=== PATIENT | female | born 1985 | race African-American/Black ===

== ENCOUNTER 2018-09-06 07:45 | Emergency (ER) | payer SELFPAY ==
[2018-09-06 08:23] LABS: ABSOLUTE LYMPHOCYTES (AUTO) 1.7 10^3/uL (0.5-4.7); ABSOLUTE MONOCYTES (AUTO) 0.9 10^3/uL (0.1-1.4); ABSOLUTE NEUT (AUTO) 10.3 10^3/uL (1.7-8.2); BASOPHILS % (AUTO) 0.4 % (0-2); EOSINOPHILS % (AUTO) 0.2 % (0-6); HEMATOCRIT 38.6 % (36.0-47.0); HEMOGLOBIN 12.8 g/dL (12.0-15.5); LYMPHOCYTES % (AUTO) 12.9 % (13-45); MEAN CORPUSCULAR HEMOGLOBIN 30.9 pg (27.0-33.4); MEAN CORPUSCULAR HGB CONC 33.1 g/dL (32.0-36.0); MEAN CORPUSCULAR VOLUME 93 fl (80-97); MONOCYTES % (AUTO) 7.1 % (3-13); PLATELET COUNT 260 10^3/uL (150-450); RED BLOOD COUNT 4.15 10^6/uL (3.72-5.28); RED CELL DISTRIBUTION WIDTH 14.6 % (11.5-14.0); SEGMENTED NEUTROPHILS % (AUTO) 79.4 % (42-78); TOTAL CELLS COUNTED % (AUTO) 100 %; WHITE BLOOD COUNT 12.9 10^3/uL (4.0-10.5)
[2018-09-06] MEDS ORDERED: ONDANSETRON HCL INJ/PF 4 MG/2 ML SDV IV ONE (08:42)
[2018-09-06] MEDS ORDERED: MORPHINE SULFATE 10 MG/ML INJ IV ONE (08:42)
[2018-09-06] MEDS ORDERED: NORMAL SALINE 1000 ML 1,000 ML IV ONE (08:42)
--- NOTE | 2018-09-06 08:42 | ER Document Report ---
ED General - General Chief Complaint: Abdominal Pain Stated Complaint: ABDOMINAL PAIN Time Seen by Provider: 09/06/18 08:33 TRAVEL OUTSIDE OF THE [place] IN LAST 30 DAYS: No - HPI Notes: Patient is a 33-year-old female that presents to the emergency department for chief complaint of abdominal pain. Patient reports a sharp right sided abdominal pain that is been constant for the last 2 days. She denies any aggravating or relieving factors. She states the pain radiates from her right lower quadrant to her right upper quadrant. She is status post cholecystectomy. She does still have her appendix. She states today she started vomiting and feeling increased nausea and pain. Her last oral intake was yesterday evening. She denies fevers, diarrhea, bloody stools, hematemesis, chest pain or shortness of breath Past Medical History: Negative Past Surgical History: Cholecystectomy, x2 Social History: Denies drugs alcohol and tobacco Family History: Reviewed and noncontributory for presenting illness Allergies: Reviewed, see documented allergy list. REVIEW OF SYSTEMS: CONSTITUTIONAL : No fever No chills No diaphoresis No recent illness EENT: No vision changes No congestion No sore throat CARDIOVASCULAR: No chest pain No palpitations RESPIRATORY: No shortness of breath No cough No difficulty breathing GASTROINTESTINAL: abdominal pain nausea vomiting No diarrhea GENITOURINARY: No dysuria No hematuria No difficulty urinating MUSCULOSKELETAL: No back pain No leg pain No arm pain SKIN: No rashes No lesions LYMPHATIC: No swollen, enlarged glands. NEUROLOGICAL: No lightheadedness No headache No weakness No paresthesias PSYCHIATRIC: No anxiety No depression PHYSICAL EXAMINATION: Vital signs reviewed, nursing noted reviewed. GENERAL: Well-appearing, well-nourished and in no acute distress. HEAD: Atraumatic, normocephalic. EYES: Eyes appear normal, extraocular movements intact, sclera anicteric, conjunctiva are normal. ENT: nares patent, oropharynx clear without exudates. Moist mucous membranes. NECK: Normal range of motion, supple without lymphadenopathy LUNGS: Breath sounds clear to auscultation bilaterally and equal. No wheezes rales or rhonchi. HEART: Regular rate and rhythm without murmurs ABDOMEN: Soft, right lower quadrant tenderness, normoactive bowel sounds. Positive rebound tenderness, no guarding, no rigidity, no masses appreciated. EXTREMITIES: Nontender, good range of motion, no pitting or edema. NEUROLOGICAL: No focal neurological deficits. Moves all extremities spontaneously Motor and sensory grossly intact on exam. PSYCH: Normal mood, normal affect. SKIN: Warm, Dry, normal turgor, no rashes or lesions noted on exposed skin - Related Data Allergies/Adverse Reactions: No Known Allergies Allergy (Verified 09/06/18 07:47) Past Medical History - Social History Smoking Status: Current Every Day Smoker Chew tobacco use (# tins/day): No Frequency of alcohol use: Occasional Drug Abuse: None Family History: Reviewed & Not Pertinent Patient has suicidal ideation: No Patient has homicidal ideation: No Pulmonary Medical History: Denies: Hx Tuberculosis Renal/ Medical History: Denies: Hx Ectopic , Hx Peritoneal Dialysis GI Medical History: Reports: Hx Gastroesophageal Reflux Disease, Hx Irritable Bowel Psychiatric Medical History: Reports: Hx Anxiety, Hx Bipolar Disorder - anxiety, Hx Depression Past Surgical History: Reports: Hx Section - X1, Hx Cholecystectomy - Immunizations Immunizations up to date: Yes Hx Diphtheria, Pertussis, Tetanus Vaccination: Yes - UTD Physical Exam - Vital signs Vitals: Temp Pulse Resp BP Pulse Ox 98.9 F 92 18 128/63 H 100 09/06/18 07:48 09/06/18 07:48 09/06/18 07:48 09/06/18 07:48 09/06/18 07:48 Course - Re-evaluation Re-evalutation: 09/06/18 08:42 Vitals reviewed. Nursing notes reviewed. Patient given IV fluids, Zofran and morphine for symptomatic management. She does have rebound tenderness and tenderness over McBurney's point. CT will be obtained to evaluate for acute appendicitis. 09/06/18 10:26 Patient reevaluated and did have improvement of her symptoms but her pain has persisted. She will be given a dose of Toradol for continued pain control. Her CT scan shows a normal-appearing appendix. She does have changes around her cecum which are suggestive of a cecal diverticulitis. Her lab work shows a mild leukocytosis but is otherwise unremarkable. Laboratory 09/06/18 09/06/18 09/06/18 08:05 08:05 08:15 WBC 12.9 H RBC 4.15 Hgb 12.8 Hct 38.6 MCV 93 MCH 30.9 MCHC 33.1 RDW 14.6 H Plt Count 260 Seg Neutrophils % 79.4 H Lymphocytes % 12.9 L Monocytes % 7.1 Eosinophils % 0.2 Basophils % 0.4 Absolute Neutrophils 10.3 H Absolute Lymphocytes 1.7 Absolute Monocytes 0.9 Absolute Eosinophils 0.0 Absolute Basophils 0.0 Sodium 138.0 Potassium 4.2 Chloride 104 Carbon Dioxide 25 Anion Gap 9 BUN 15 Creatinine 0.59 Est GFR ( Amer) > 60 Est GFR (Non-Af Amer) > 60 Glucose 109 Calcium 10.3 H Total Bilirubin 0.8 Direct Bilirubin 0.2 Neonat Total Bilirubin Not Reportable Neonat Direct Bilirubin Not Reportable Neonat Indirect Bili Not Reportable AST 43 H ALT 31 Alkaline Phosphatase 62 Total Protein 7.9 Albumin 4.8 Lipase 109.9 Urine Color YELLOW Urine Appearance CLEAR Urine pH 8.0 Ur Specific [place] 1.023 Urine Protein NEGATIVE Urine Glucose (UA) NEGATIVE Urine Ketones NEGATIVE Urine Blood NEGATIVE Urine Nitrite NEGATIVE Urine Bilirubin NEGATIVE Urine Urobilinogen 2.0 H Ur Leukocyte Esterase NEGATIVE Urine WBC (Auto) 1 Urine RBC (Auto) 0 Urine Bacteria (Auto) TRACE Squamous Epi Cells Auto 2 Urine Mucus (Auto) MOD Urine Ascorbic Acid NEGATIVE Urine HCG, Qual NEGATIVE Abdomen/Pelvis CT 09/06/18 08:40 IMPRESSION: 1. There is mild fat stranding about the cecal base centered around a high attenuation focus which may be a diverticulum. Cecal diverticulitis is an uncommon although reported condition. 2. The adjacent appendix is distinctly visualized and normal. 3. Diastasis rectus and a broad-based, bowel containing midline ventral hernia. Patient will be started on Cipro and Flagyl. She was counseled on increasing oral hydration. She was counseled on return precautions and verbalized understanding. She will be referred to primary care for close follow-up. She is in agreement with this plan and stable at discharge. - Vital Signs Vital signs: Temp Pulse Resp BP Pulse Ox 98.9 F 92 18 128/63 H 100 09/06/18 07:48 09/06/18 07:48 09/06/18 07:48 09/06/18 07:48 09/06/18 07:48 - Laboratory Result Diagrams: 09/06/18 08:15 09/06/18 08:05 Laboratory results interpreted by me: 09/06/18 09/06/18 09/06/18 08:05 08:05 08:15 WBC 12.9 H RDW 14.6 H Seg Neutrophils % 79.4 H Lymphocytes % 12.9 L Absolute Neutrophils 10.3 H Calcium 10.3 H AST 43 H Urine Urobilinogen 2.0 H Discharge - Discharge Clinical Impression: Cecal diverticulitis Condition: Stable Disposition: HOME, SELF-CARE Instructions: Diverticulitis ([facility]), Ciprofloxacin ([facility]), Metronidazole ([facility]) Additional Instructions: Please return to the emergency department if you have any worsening, or concern of your symptoms. Please return to the emergency department if you develop chest pain, difficulty breathing, severe abdominal pain, or ongoing vomiting. Please follow-up with your primary care physician in 2-3 days and any other recommended physicians. If prescribed, take all medications as directed. If you have any questions or concerns do not hesitate to return the emergency department for evaluation. Prescriptions: Ciprofloxacin HCl [Cipro 500 mg Tablet] 500 mg PO BID #20 tablet Metronidazole [Flagyl] 500 mg PO BID #20 tablet Ondansetron [Zofran Odt 4 mg Tablet] 1 tab PO Q4H PRN #15 tab.rapdis PRN Reason: For Nausea/Vomiting Referrals: [facility] [Provider Group] - Follow up in 3-5 days
[2018-09-06 08:46] LABS: APPEARANCE,URINE CLEAR; BILIRUBIN,URINE NEGATIVE (NEGATIVE); COLOR,URINE YELLOW; GLUCOSE, URINE NEGATIVE (NEGATIVE); KETONES,URINE NEGATIVE (NEGATIVE); LEUKOCYTE ESTERASE,URINE NEGATIVE (NEGATIVE); NITRITE,URINE NEGATIVE (NEGATIVE); PROTEIN,URINE NEGATIVE (NEGATIVE); URINE SPECIFIC GRAVITY 1.023
[2018-09-06 08:47] LABS: ALANINE AMINOTRANSFERASE 31 U/L (9-52); ALBUMIN 4.8 g/dL (3.5-5.0); ALKALINE PHOSPHATASE 62 U/L (38-126); ANION GAP 9 (5-19); ASPARTATE AMINO TRANSFERASE 43 U/L (14-36); BILIRUBIN,DIRECT 0.2 mg/dL (0.0-0.4); BILIRUBIN,TOTAL 0.8 mg/dL (0.2-1.3); BLOOD UREA NITROGEN 15 mg/dL (7-20); CALCIUM 10.3 mg/dL (8.4-10.2); CARBON DIOXIDE 25 mmol/L (22-30); CHLORIDE 104 mmol/L (98-107); GLUCOSE 109 mg/dL (75-110); LIPASE 109.9 U/L (23-300); POTASSIUM 4.2 mmol/L (3.6-5.0); TOTAL PROTEIN 7.9 g/dL (6.3-8.2)
--- NOTE | 2018-09-06 10:13 | RADIOLOGY REPORT (SQ) ---
EXAM DESCRIPTION: CT ABD/PELVIS WITH IV ONLY COMPLETED DATE/TIME: 09/06/2018 9:55 am REASON FOR STUDY: RLQ pain COMPARISON: 06/30/2015 TECHNIQUE: CT scan of the abdomen and pelvis performed using helical scanning technique with dynamic intravenous contrast injection. No oral contrast. Images reviewed with lung, soft tissue, and bone windows. Reconstructed coronal and sagittal MPR images reviewed. Delayed images for evaluation of the urinary system also acquired. All images stored on PACS. All CT scanners at this facility use dose modulation, iterative reconstruction, and/or weight based d osing when appropriate to reduce radiation dose to as low as reasonably achievable (ALARA). [facility]: Dose Right [facility]: CareDose [facility]: Dose Right [facility]: Teradose 4D [facility]: [employer] CONTRAST TYPE AND DOSE: contrast/concentration: Isovue 350.00 mg/ml; Total Contrast Delivered: 100.0 ml; Total Saline Delivered: 72.0 ml RENAL FUNCTION: None required. The patient is less than 50 years old. RADIATION DOSE: CT Rad equipment meets quality standard of care and radiation dose reduction techniq ues were employed. CTDIvol: 12.8 - 17.0 mGy. DLP: 1607 mGy-cm.. LIMITATIONS: None. FINDINGS: LOWER CHEST: No significant findings. No nodules or infiltrates. LIVER: Normal size. No masses. No dilated ducts. SPLEEN: Normal size. No focal lesions. PANCREAS: No masses. No significant calcifications. No adjacent inflammation or peripancreatic fluid collections. Pancreatic duct not dilated. GALLBLADDER: Surgically absent. ADRENAL GLANDS: No significant masses or asymmetry. RIGHT KIDNEY AND URETER: No solid masses. No significant calcifications. No hydronephrosis or hyd roureter. LEFT KIDNEY AND URETER: No solid masses. No significant calcifications. No hydronephrosis or hydr oureter. AORTA AND VESSELS: No aneurysm. No dissection. Renal arteries, SMA, celiac without stenosis. RETROPERITONEUM: No retroperitoneal adenopathy, hemorrhage or masses. BOWEL AND PERITONEAL CAVITY: There is mild fat stranding about the cecal base centered around a high attenuation focus which may be a diverticulum (series 3, image 57). APPENDIX: The appendix is distinctly visualized anterior to the cecal base and is normal (series 3, i mage 49). PELVIS: No mass. No free fluid. Normal bladder. ABDOMINAL WALL: No masses. Diastasis rectus and a broad-based, bowel containing midline ventral lashonda ia. BONES: No significant or acute findings. OTHER: No other significant finding. IMPRESSION: 1. There is mild fat stranding about the cecal base centered around a high attenuation f ocus which may be a diverticulum. Cecal diverticulitis is an uncommon although reported condition. 2. The adjacent appendix is distinctly visualized and normal. 3. Diastasis rectus and a broad-based, bowel containing midline ventral hernia. TECHNICAL DOCUMENTATION: JOB ID: [id number] Quality ID # [id number]: Final reports with documentation of one or more dose reduction techniques (e.g., Au tomated exposure control, adjustment of the mA and/or kV according to patient size, use of iterative reconstruction technique) 2010 [employer]- All Rights Reserved Reading location - IP/workstation name: [email or web address]
[2018-09-06] MEDS ORDERED: KETOROLAC TROMETHAMINE INJ/PF 30 MG/1 ML SDV IV ONE (10:27)
[2018-09-06 10:50] VITALS: BP 116/76
== END 2018-09-06 10:50 | disposition home or self-care (01) ==
LOC: ER 07:45
DX: K57.92 Diverticulitis of intestine, part unspecified, without perforation or abscess without bleeding (principal); R10.9 Unspecified abdominal pain; F17.200 Nicotine dependence, unspecified, uncomplicated; Z90.49 Acquired absence of other specified parts of digestive tract
CPT/HCPCS: 99284; 96361; 96374; 96375; 36415; 83690; 85025; 81025; 80053; 81001; 74177; J1885; J2270; J2405; J7030

== ENCOUNTER 2019-02-12 18:56 | Emergency (ER) | payer SELFPAY ==
--- NOTE | 2019-02-12 19:27 | ER Document Report ---
ED Medical Screen (RME) - General Chief Complaint: Abdominal Pain Stated Complaint: STOMACH PAIN Time Seen by Provider: 02/12/19 19:25 TRAVEL OUTSIDE OF THE [place] IN LAST 30 DAYS: No - HPI Notes: 02/12/19 19:25 Patient is a 33-year-old female G7, P5 approximately 10 weeks who presents complaining of nausea and vomiting over the past couple weeks and having some discomfort near her mid abdomen/umbilical area. Patient is aware that she does have a hernia there, but has not noticed any swelling. Patient states that she has not had any ultrasound or further testing for her . She is able to eat and drink, but does have a decreased p.o. intake. She is urinating normally and having normal bowel movements. No vaginal discharge, odor, or bleeding. Denies PETERSEN, fever, neck pain, URI, CP, SOB, dysuria, back pain, or rash. I have treated and performed a rapid initial assessment of this patient. A comprehensive ED assessment and evaluation of the patient, analysis of test results and completion of medical decision making process will be conducted by additional ED providers. PHYSICAL EXAMINATION: GENERAL: Well-appearing, well-nourished and in no acute distress. A&Ox4. Answe rs questions appropriately. LUNGS: Breath sounds clear to auscultation bilaterally and equal. No wheezes rales or rhonchi. HEART: Regular rate and rhythm without murmurs, rubs, gallops. ABDOMEN: Soft, nondistended abdomen. No guarding, no rebound. Normal bowel sounds present. No CVA tenderness bilaterally. + mild lower mid abd tenderness (cannot elicit thorough abd exam w/o bed, however). + reducible umbilical hernia noted. - Related Data Allergies/Adverse Reactions: No Known Allergies Allergy (Verified 09/06/18 07:47) Past Medical History Pulmonary Medical History: Denies: Hx Tuberculosis Renal/ Medical History: Denies: Hx Ectopic , Hx Peritoneal Dialysis GI Medical History: Reports: Hx Gastroesophageal Reflux Disease, Hx Irritable Bowel Psychiatric Medical History: Reports: Hx Anxiety, Hx Bipolar Disorder - anxiety, Hx Depression Past Surgical History: Reports: Hx Section - X1, Hx Cholecystectomy - Immunizations Immunizations up to date: Yes Hx Diphtheria, Pertussis, Tetanus Vaccination: Yes - UTD Physical Exam - Vital signs Vitals: Temp Pulse Resp BP Pulse Ox 98.2 F 68 18 138/77 H 100 02/12/19 19:00 02/12/19 19:00 02/12/19 19:00 02/12/19 19:00 02/12/19 19:00 Course - Vital Signs Vital signs: Temp Pulse Resp BP Pulse Ox 98.2 F 68 18 138/77 H 100 02/12/19 19:00 02/12/19 19:00 02/12/19 19:00 02/12/19 19:00 02/12/19 19:00
[2019-02-12] MEDS ORDERED: NORMAL SALINE 1000 ML 1,000 ML IV ONE (19:28)
[2019-02-12] MEDS ORDERED: ONDANSETRON HCL INJ/PF 4 MG/2 ML SDV IV ONE (19:28)
[2019-02-12 20:08] LABS: APPEARANCE,URINE SLIGHTLY-CLOUDY; BILIRUBIN,URINE NEGATIVE (NEGATIVE); COLOR,URINE YELLOW; GLUCOSE, URINE NEGATIVE (NEGATIVE); KETONES,URINE NEGATIVE (NEGATIVE); LEUKOCYTE ESTERASE,URINE NEGATIVE (NEGATIVE); NITRITE,URINE NEGATIVE (NEGATIVE); PROTEIN,URINE NEGATIVE (NEGATIVE); URINE SPECIFIC GRAVITY 1.024; UROBILINOGEN,URINE NEGATIVE mg/dL (<2.0)
[2019-02-12 20:09] LABS: ABSOLUTE EOSINOPHILS # (AUTO) 0.1 10^3/uL (0.0-0.6); ABSOLUTE LYMPHOCYTES (AUTO) 2.2 10^3/uL (0.5-4.7); ABSOLUTE MONOCYTES (AUTO) 0.6 10^3/uL (0.1-1.4); ABSOLUTE NEUT (AUTO) 3.9 10^3/uL (1.7-8.2); BASOPHILS % (AUTO) 0.3 % (0-2); EOSINOPHILS % (AUTO) 0.9 % (0-6); HEMATOCRIT 35.7 % (36.0-47.0); HEMOGLOBIN 11.9 g/dL (12.0-15.5); LYMPHOCYTES % (AUTO) 32.2 % (13-45); MEAN CORPUSCULAR HEMOGLOBIN 31.2 pg (27.0-33.4); MEAN CORPUSCULAR HGB CONC 33.3 g/dL (32.0-36.0); MEAN CORPUSCULAR VOLUME 94 fl (80-97); MONOCYTES % (AUTO) 8.9 % (3-13); PLATELET COUNT 230 10^3/uL (150-450); RED BLOOD COUNT 3.81 10^6/uL (3.72-5.28); RED CELL DISTRIBUTION WIDTH 15.8 % (11.5-14.0); SEGMENTED NEUTROPHILS % (AUTO) 57.7 % (42-78); TOTAL CELLS COUNTED % (AUTO) 100 %; WHITE BLOOD COUNT 6.8 10^3/uL (4.0-10.5)
[2019-02-12 20:21] LABS: ALANINE AMINOTRANSFERASE 38 U/L (9-52); ALBUMIN 4.2 g/dL (3.5-5.0); ALKALINE PHOSPHATASE 49 U/L (38-126); ANION GAP 8 (5-19); ASPARTATE AMINO TRANSFERASE 18 U/L (14-36); BILIRUBIN,DIRECT 0.2 mg/dL (0.0-0.4); BILIRUBIN,TOTAL 0.3 mg/dL (0.2-1.3); BLOOD UREA NITROGEN 11 mg/dL (7-20); CALCIUM 10.2 mg/dL (8.4-10.2); CARBON DIOXIDE 26 mmol/L (22-30); CHLORIDE 104 mmol/L (98-107); GLUCOSE 99 mg/dL (75-110); LIPASE 402.3 U/L (23-300); POTASSIUM 3.8 mmol/L (3.6-5.0); SODIUM 137.9 mmol/L (137-145)
--- NOTE | 2019-02-12 20:26 | RADIOLOGY REPORT (SQ) ---
EXAM DESCRIPTION: US LESS THAN 14 WEEKS COMPLETED DATE/TME: 02/12/2019 19:27 CLINICAL HISTORY: 33 years, Female, approx 10wks, lower abd pain COMPARISON: None. TECHNIQUE: Multiple axial 2-D grayscale images of the pelvis were obtained transabdominally. Doppler was utilized. LIMITATIONS: None. FINDINGS: Uterus measures 4.1 x 7.8 x 6.0 cm in length. Cervix is closed, measuring 3.0 cm in length. A single intrauterine gestation is identified. Measurements are as follows: Clymer-rump length: 4.79 cm. heart rate is 157 bpm Estimated gestational age is 11 weeks and 4 days. Right ovary measures 3.0 x 1.6 x 2.0 cm in size. It demonstrates normal low resistance arterial waveforms as well as venous flow. Left ovary measures 5.1 x 1.9 x 2.4 cm in size. It demonstrates normal low resistance arterial waveforms/venous flow. Additionally, it appears to contain a hypoechoic lesion measuring 2.2 x 2.3 x 1.8 cm in size with peripheral hyperemia, suspicious for an involuting corpus luteal cyst. No significant free fluid is identified within the pelvis. IMPRESSION: Single viable intrauterine with measurements as above described. Suspect involuting corpus luteal cyst about the left ovary. copyright 2010 [employer]- All Rights Reserved
[2019-02-12] MEDS ORDERED: METOCLOPRAMIDE HCL 10 MG TABLET PO ONE (22:44)
--- NOTE | 2019-02-12 22:48 | ER Document Report ---
ED General - General Chief Complaint: Abdominal Pain Stated Complaint: STOMACH PAIN Time Seen by Provider: 02/12/19 19:25 Primary Care Provider: EUNICE REINA MD [ACTIVE STAFF] - Follow up in 3-5 days Notes: Patient is a 30-year-old female who is currently presents with some lower abdominal pain as well as nausea and vomiting. No fevers. No vaginal bleeding. States her seventh . She has 5 kids at home and has had one miscarriage. She says she has not yet had any care. She says she does feel that she is approximately 2 weeks ago. She says this she has had some vomiting and some abdominal discomfort. She is had these with other pregnancies as well. She has not had any medications to take at home in regards to her nausea and vomiting. TRAVEL OUTSIDE OF THE [place] IN LAST 30 DAYS: No - Related Data Allergies/Adverse Reactions: No Known Allergies Allergy (Verified 09/06/18 07:47) Past Medical History - Social History Smoking Status: Never Smoker Chew tobacco use (# tins/day): No Frequency of alcohol use: Occasional Drug Abuse: None Family History: Reviewed & Not Pertinent Patient has suicidal ideation: No Patient has homicidal ideation: No Pulmonary Medical History: Denies: Hx Tuberculosis Renal/ Medical History: Denies: Hx Ectopic , Hx Peritoneal Dialysis GI Medical History: Reports: Hx Gastroesophageal Reflux Disease, Hx Irritable Bowel Psychiatric Medical History: Reports: Hx Anxiety, Hx Bipolar Disorder - anxiety, Hx Depression Past Surgical History: Reports: Hx Section - X1, Hx Cholecystectomy - Immunizations Immunizations up to date: Yes Hx Diphtheria, Pertussis, Tetanus Vaccination: Yes - UTD Review of Systems - Review of Systems Notes: My Normal Review Basic REVIEW OF SYSTEMS: CONSTITUTIONAL : Denies fever, chills, or sweats. Denies recent illness. RESPIRATORY: Denies cough, cold, or chest congestion. Denies shortness of breath, difficulty breathing, or wheezing. GASTROINTESTINAL: Lower abdominal pain. Vomiting. GENITOURINARY: Denies difficulty urinating, painful urination, burning, frequency, or blood in urine. FEMALE GENITOURINARY: Denies vaginal bleeding, abnormal or irregular periods. LMP: Currently MUSCULOSKELETAL: Denies neck or back pain or joint pain or swelling. SKIN: Denies rash or skin lesions. NEUROLOGICAL: Denies altered mental status or loss of consciousness. Denies headache. Denies weakness or paralysis or loss of use of either side. Denies problems with gait or speech. Denies sensory or motor loss. ALL OTHER SYSTEMS REVIEWED AND NEGATIVE. Physical Exam - Vital signs Vitals: Temp Pulse Resp BP Pulse Ox 98.2 F 68 18 138/77 H 100 02/12/19 19:00 02/12/19 19:00 02/12/19 19:00 02/12/19 19:00 02/12/19 19:00 - Notes Notes: General Appearance: Well nourished, alert, cooperative, no acute distress, no obvious discomfort. Well-appearing. Vitals: reviewed, See vital signs table. Head: no swelling or tenderness to the head Eyes: PERRL, EOMI, Conjuctiva clear Mouth: No decreasd moisture Lungs: No wheezing, No rales, No rhonci, No accessory muscle use, good air exchange bilaterally. Heart: Normal rate, Regular rythm, No murmur, no rub Abdomen: Normal BS, soft, No rigidity, mild suprapubic abdominal tenderness to palpation, No guarding, no rebound, no abdominal masses, no organomegaly Extremities: good pulses in all extremities, no edema. Skin: warm, dry, appropriate color, no rash Neuro: speech clear, oriented x 3, normal affect, responds appropriately to questions. Course - Re-evaluation Re-evalutation: 02/12/19 22:47 Patient is feeling improved. She looks well. I will prescribe Reglan for her nausea and vomiting associate with her . She says she always has nausea vomiting and so she was with her pregnancies and she is always had with a previous . She has not no significant dull pain at this time. She does have a umbilical hernia which is soft and is reducible on exam. No signs of incarceration on exam. She has no vaginal bleeding and therefore she does not need RhoGam at this time. I have given her the number to the on-call stores clerk encouraged her to follow-up with them for continued care. I encouraged her to continue take pain vitamins and to return to the ER if she has worsening pain, vaginal bleeding, fevers, or intractable vomiting. Patient agrees with plan and will be discharged home. Dictation of this chart was performed using voice recognition software; therefore, there may be some unintended grammatical errors. - Vital Signs Vital signs: Temp Pulse Resp BP Pulse Ox 98.6 F 65 16 114/62 99 02/12/19 23:04 02/12/19 23:04 02/12/19 23:04 02/12/19 23:04 02/12/19 23:04 - Laboratory Result Diagrams: 02/12/19 19:40 02/12/19 19:40 Laboratory results interpreted by me: 02/12/19 02/12/19 19:40 19:40 Hgb 11.9 L Hct 35.7 L RDW 15.8 H Lipase 402.3 H Beta HCG, Quant 160445.00 H Discharge - Discharge Clinical Impression: Abdominal pain affecting Vomiting Qualifiers: Vomiting type: unspecified Vomiting Intractability: non-intractable Nausea presence: with nausea Qualified Code(s): R11.2 - Nausea with vomiting, unspecified Condition: Good Disposition: HOME, SELF-CARE Additional Instructions: Please call the stores clerk to make a close follow-up appointment. I have given the number to the stores clerk on-call who is Dr. Barry Reina. Please have a low threshold to return to the ER if you have intractable vomiting, severe pain, vaginal bleeding, abnormal discharge, or fevers. Please continue to take vitamins. I have prescribed you Reglan. This is a medication that we use for vomiting in that is safe in the first trimester. A small portion of the people take this medication and will sometimes get a sensation of the muscles jumping or moving. If this happens then you can stop taking the medication and take 25 mg of Benadryl. If these symptoms continue despite taking the Benadryl then you should return to the ER for reevaluation. Prescriptions: Metoclopramide HCl [Reglan 10 mg Tablet] 1 tab PO ASDIR PRN #25 tablet PRN Reason: Referrals: EUNICE REINA MD [ACTIVE STAFF] - Follow up in 3-5 days
[2019-02-12 23:05] VITALS: BP 114/62
== END 2019-02-12 23:04 | disposition home or self-care (01) ==
LOC: ER 18:56
DX: O21.9 Vomiting of pregnancy, unspecified (principal); O26.91 Pregnancy related conditions, unspecified, first trimester; R10.30 Lower abdominal pain, unspecified; Z90.49 Acquired absence of other specified parts of digestive tract
CPT/HCPCS: 99284; 96361; 96374; 36415; 84702; 83690; 85025; 80053; 81001; 76801; 93976; J2405; J7030

== ENCOUNTER → 2019-03-15 | Outpatient (CLI) | payer MEDICAID ==
--- NOTE | 2019-03-15 16:09 | RADIOLOGY REPORT (SQ) ---
EXAM DESCRIPTION: U/S OB 14+ TRNABD 1GES W/O DOP COMPLETED DATE/TIME: 03/15/2019 3:49 pm REASON FOR STUDY: Z34.82 ENCOUNTER FOR SUPRVSN OF NORMAL , SECOND TRIMESTER Z34.82 ENCOUNT ER FOR SUPRVSN OF NORMAL , SECOND TRI COMPARISON: No previous this TECHNIQUE: Static and Dynamic grayscale imaging performed of gravid uterus using transabdominal appr oach. Additional selected color Doppler and spectral images recorded. All stored on PACS. LIMITATIONS: None. FINDINGS: FETUSES SEEN:1 EGA: 16 weeks 0 days Calculated using BPD,FL,HC,AC documented on images. DECLAN: 08/30/2019 EFW: 144 grams PERCENTILE: Not calculated JEFERSON: Largest pocket 4.5 cm PLACENTA: Posterior fundal grade 1 PRESENTATION: Cephalic. ANATOMY: HEART RATE: 143 beats per minute. FOUR CHAMBER HEART: Visualized. THREE VESSEL CORD: Yes. CORD INSERTION: Visualized. KIDNEYS AND BLADDER: Kidneys visualized appear normal. Bladder not well seen. STOMACH: Visualized. Appears normal. SPINE: Normal as visualized. BRAIN AND LATERAL VENTRICLES: Limited visualization OTHER: No other significant finding. MATERNAL ADNEXA: Maternal ovaries not visualized. CERVICAL LENGTH: 3.1 cm Closed. OTHER: No other significant finding. IMPRESSION: LIVING INTRAUTERINE . ESTIMATED GESTATIONAL AGE 16 weeks 0 days NO VISUALIZED ANOMALIES. Trimester of : Second trimester - 13 weeks 1 day to 27 weeks 6 days. TECHNICAL DOCUMENTATION: JOB ID: [id number] [employer]- All Rights Reserved Reading location - IP/workstation name: [email or web address]
== END ==
LOC: RAD 15:11
PROVIDERS: ATTEND Midwife
DX: Z34.82 Encounter for supervision of other normal pregnancy, second trimester (principal)
CPT/HCPCS: 76805

== ENCOUNTER 2019-08-13 10:37 | Outpatient (CLI) | payer MEDICAID ==
[2019-08-13 12:28] LABS: APPEARANCE,URINE TURBID; BILIRUBIN,URINE NEGATIVE (NEGATIVE); GLUCOSE, URINE NEGATIVE (NEGATIVE); KETONES,URINE 20 mg/dL (NEGATIVE); LEUKOCYTE ESTERASE,URINE MODERATE (NEGATIVE); NITRITE,URINE NEGATIVE (NEGATIVE); PROTEIN,URINE 100 mg/dL (NEGATIVE); URINE SPECIFIC GRAVITY 1.023; UROBILINOGEN,URINE NEGATIVE mg/dL (<2.0)
[2019-08-13 12:29] LABS: COLOR,URINE YELLOW
[2019-08-13] MEDS ORDERED: RINGERS SOLUTION,LACTATED 1,000 ML IV ONE (12:50)
[2019-08-13 12:51] LABS: URINE AMPHETAMINES SCREEN NEGATIVE; URINE BARBITURATES SCREEN NEGATIVE; URINE BENZODIAZEPINES SCREEN NEGATIVE; URINE COCAINE SCREEN NEGATIVE; URINE METHADONE SCREEN NEGATIVE; URINE PHENCYCLIDINE SCREEN NEGATIVE
[2019-08-13] MEDS ORDERED: TERBUTALINE SULFATE INJ/PF 1 MG/1 ML SDV SUBCUT ONE (12:51)
[2019-08-13] MEDS ORDERED: TERBUTALINE SULFATE INJ/PF 1 MG/1 ML SDV ONE (12:54)
[2019-08-13 12:59] LABS: URINE MARIJUANA (THC) SCREEN UNCONFIRMED POSITIVE
[2019-08-13] MEDS ORDERED: HYDROXYZINE PAMOATE 50 MG CAPSULE PO ONE (13:45)
[2019-08-13] MEDS ORDERED: HYDROXYZINE PAMOATE 50 MG CAPSULE ONE (13:47)
== END 2019-08-13 15:57 | disposition home or self-care (01) ==
LOC: LC 10:37
PROVIDERS: ATTEND Obstetrics & Gynecology
PROC: 4A1HXCZ Monitoring of Products of Conception, Cardiac Rate, External Approach (ICD-10-PCS; principal; 2019-08-13)
DX: Z34.83 Encounter for supervision of other normal pregnancy, third trimester (principal); Z3A.37 37 weeks gestation of pregnancy
CPT/HCPCS: 59025; 81005; 80307; J3490; J3105; 94760

== ENCOUNTER 2019-08-22 17:02 | Emergency (ER) | payer MEDICAID ==
[2019-08-22 17:27] VITALS: BP 145/76
[2019-08-22] MEDS ORDERED: ACETAMINOPHEN 325 MG TABLET PO ONE (20:06)
[2019-08-22] MEDS ORDERED: DIPHENHYDRAMINE HCL 25 MG CAPSULE PO ONE (20:06)
[2019-08-22] MEDS ORDERED: METOCLOPRAMIDE HCL 10 MG TABLET PO ONE (20:07)
--- NOTE | 2019-08-22 20:08 | ER Document Report ---
ED Medical Screen (RME) - General Chief Complaint: Headache Stated Complaint: HEADACHE Time Seen by Provider: 08/22/19 20:02 Primary Care Provider: DOUGLAS RIGGS MD [Primary Care Provider] - Follow up as needed Mode of Arrival: Ambulatory Information source: Patient Notes: This 34-year-old female from August 16 with of presents today with complaints of headache since she was discharged. Reports she did have a spinal and was told to expect the headache but she still having it and nothing is taking care of it. She reports that she is taking ibuprofen and Percocet today without relief of symptoms. She denies fever vomiting diarrhea. I have greeted and performed a rapid initial assessment of this patient. A comprehensive ED assessment and evaluation of the patient, analysis of test results and completion of the medical decision making process will be conducted by additional ED providers. TRAVEL OUTSIDE OF THE [place] IN LAST 30 DAYS: No - Related Data Allergies/Adverse Reactions: No Known Allergies Allergy (Verified 08/16/19 13:07) Past Medical History Pulmonary Medical History: Denies: Hx Tuberculosis Renal/ Medical History: Denies: Hx Ectopic , Hx Peritoneal Dialysis GI Medical History: Reports: Hx Gastroesophageal Reflux Disease, Hx Irritable Bowel Psychiatric Medical History: Reports: Hx Anxiety, Hx Bipolar Disorder - anxiety, Hx Depression Past Surgical History: Reports: Hx Section - X1, Hx Cholecystectomy - Immunizations Immunizations up to date: Yes Hx Diphtheria, Pertussis, Tetanus Vaccination: Yes - UTD Physical Exam - Vital signs Vitals: Temp Pulse Resp BP Pulse Ox 98.7 F 70 18 145/76 H 98 08/22/19 17:25 08/22/19 17:25 08/22/19 17:25 08/22/19 17:25 08/22/19 17:25 Course - Vital Signs Vital signs: Temp Pulse Resp BP Pulse Ox 98.7 F 70 18 145/76 H 98 08/22/19 17:25 08/22/19 17:25 08/22/19 17:25 08/22/19 17:25 08/22/19 17:25 Doctor's Discharge - Discharge Referrals: DOUGLAS RIGGS MD [Primary Care Provider] - Follow up as needed
== END 2019-08-22 23:59 | disposition left against medical advice (07) ==
LOC: ER 17:02
DX: R51 Headache (principal); Z90.49 Acquired absence of other specified parts of digestive tract
CPT/HCPCS: 99281

== ENCOUNTER 2019-08-28 10:03 | Inpatient (IN) | payer MEDICAID ==
[2019-08-28] MEDS ORDERED: DIPHENHYDRAMINE HCL 50 MG/ML VIAL IV ONE (10:44)
[2019-08-28] MEDS ORDERED: NORMAL SALINE 1000 ML 1,000 ML IV ONE (10:44)
[2019-08-28] MEDS ORDERED: PROCHLORPERAZINE EDISYLATE INJ 10 MG/2 ML VIAL IV ONE (10:44)
[2019-08-28] MEDS ORDERED: KETOROLAC TROMETHAMINE INJ/PF 30 MG/1 ML SDV IV ONE (10:44)
[2019-08-28 11:26] LABS: ABSOLUTE EOSINOPHILS # (AUTO) 0.1 10^3/uL (0.0-0.6); ABSOLUTE LYMPHOCYTES (AUTO) 1.9 10^3/uL (0.5-4.7); ABSOLUTE MONOCYTES (AUTO) 0.4 10^3/uL (0.1-1.4); HEMOGLOBIN 11.3 g/dL (12.0-15.5); TOTAL CELLS COUNTED % (AUTO) 100 %; WHITE BLOOD COUNT 5.9 10^3/uL (4.0-10.5)
[2019-08-28 11:29] LABS: A TYPE INFLUENZA AG NEGATIVE (NEGATIVE); B INFLUENZA AG NEGATIVE (NEGATIVE)
[2019-08-28 11:41] LABS: ABSOLUTE NEUT (AUTO) 3.4 10^3/uL (1.7-8.2); ALBUMIN 3.2 g/dL (3.5-5.0); ALKALINE PHOSPHATASE 118 U/L (38-126); ANION GAP 7 (5-19); ASPARTATE AMINO TRANSFERASE 25 U/L (14-36); BASOPHILS % (AUTO) 0.5 % (0-2); BILIRUBIN,DIRECT 0.1 mg/dL (0.0-0.4); BILIRUBIN,TOTAL 0.3 mg/dL (0.2-1.3); BLOOD UREA NITROGEN 18 mg/dL (7-20); CALCIUM 9.5 mg/dL (8.4-10.2); CARBON DIOXIDE 25 mmol/L (22-30); CHLORIDE 108 mmol/L (98-107); CREATINE KINASE 44 U/L (30-135); EOSINOPHILS % (AUTO) 1.4 % (0-6); GLUCOSE 88 mg/dL (75-110); HEMATOCRIT 34.1 % (36.0-47.0); LYMPHOCYTES % (AUTO) 31.9 % (13-45); MEAN CORPUSCULAR HEMOGLOBIN 30.6 pg (27.0-33.4); MEAN CORPUSCULAR VOLUME 93 fl (80-97); MONOCYTES % (AUTO) 7.3 % (3-13); PLATELET COUNT 257 10^3/uL (150-450); POTASSIUM 4.1 mmol/L (3.6-5.0); RED BLOOD COUNT 3.69 10^6/uL (3.72-5.28); RED CELL DISTRIBUTION WIDTH 15.3 % (11.5-14.0); SEGMENTED NEUTROPHILS % (AUTO) 58.9 % (42-78)
[2019-08-28 11:51] LABS: APPEARANCE,URINE CLEAR; BILIRUBIN,URINE NEGATIVE (NEGATIVE); COLOR,URINE YELLOW; GLUCOSE, URINE NEGATIVE (NEGATIVE); KETONES,URINE NEGATIVE (NEGATIVE); LEUKOCYTE ESTERASE,URINE SMALL (NEGATIVE); NITRITE,URINE NEGATIVE (NEGATIVE); PROTEIN,URINE 30 mg/dL (NEGATIVE); URINE SPECIFIC GRAVITY 1.017; UROBILINOGEN,URINE NEGATIVE mg/dL (<2.0)
--- NOTE | 2019-08-28 11:56 | ER Document Report ---
Entered by CARA BUSCH SCRIBE 08/28/19 1029 Acting as scribe for:DIANA HENDERSON MD ED General - General Chief Complaint: Incision Problem Stated Complaint: PAIN, REDNESS,ODOR/ SITE Time Seen by Provider: 08/28/19 10:25 Primary Care Provider: EUNICE REINA MD [ACTIVE STAFF] - Follow up tomorrow Mode of Arrival: Ambulatory Information source: Patient Notes: This 34 year old female patient s/p repeat low transverse (08/16) presents to the ED today with complaints of incision odor and pain that began x3 days ago. Patient denies any drainage, fever, or vomiting. Patient reports associated abdominal pain when she eats, a cough, sneezing, chills, and a headache. Patients states that it feels "like my head is killing me" and reports pain behind her eyes and the back of her head. Patient notes that she ashley s not received a flu shot this year. TRAVEL OUTSIDE OF THE [place] IN LAST 30 DAYS: No - Related Data Allergies/Adverse Reactions: No Known Allergies Allergy (Verified 08/16/19 13:07) Past Medical History - General Information source: Patient - Social History Smoking Status: Unknown if Ever Smoked Cigarette use (# per day): No Chew tobacco use (# tins/day): No Smoking Education Provided: No Frequency of alcohol use: None Drug Abuse: Marijuana Lives with: Family Family History: Reviewed & Not Pertinent GI Medical History: Reports: Hx Gastroesophageal Reflux Disease, Hx Irritable Bowel Psychiatric Medical History: Reports: Hx Anxiety, Hx Bipolar Disorder, Hx Depression Past Surgical History: Reports: Hx Section - X2, Hx Cholecystectomy - Immunizations Immunizations up to date: Yes Hx Diphtheria, Pertussis, Tetanus Vaccination: Yes - UTD Review of Systems - Review of Systems Constitutional: See HPI, Chills. denies: Fever EENT: No symptoms reported Cardiovascular: No symptoms reported Respiratory: See HPI, Cough Gastrointestinal: See HPI, Abdominal pain. denies: Vomiting Genitourinary: No symptoms reported Female Genitourinary: No symptoms reported Musculoskeletal: No symptoms reported Skin: See HPI, Other - incision odor and pain Hematologic/Lymphatic: No symptoms reported Neurological/Psychological: See HPI, Headaches -: Yes All other systems reviewed and negative Physical Exam - Vital signs Vitals: Temp Pulse Resp BP Pulse Ox 98.5 F 50 L 20 170/76 H 98 08/28/19 10:22 08/28/19 10:22 08/28/19 10:22 08/28/19 10:22 08/28/19 10:22 - General General appearance: Alert - HEENT Head: Tenderness - Scapular and temporal musculature tenderness with palpation Eyes: Normal Pupils: PERRL Tympanic membrane: Normal Pharynx: Normal Neck: Other - Posterior cervical musculature tenderness with palpation - Respiratory Respiratory status: No respiratory distress Chest status: Nontender Breath sounds: Nonproductive cough - Congested cough Chest palpation: Normal - Cardiovascular Rhythm: Regular Heart sounds: Normal auscultation Murmur: No - Abdominal Inspection: Obese, Other - incision looks good, but wet. Skin debris noted. Distension: No distension Bowel sounds: Hypoactive - Decreased bowel sounds Tenderness: Tender - Abdomen is diffusely tender with palpation Organomegaly: No organomegaly - Back Back: Normal, Nontender - Extremities General upper extremity: Normal inspection General lower extremity: Normal inspection. No: Edema - No peripheral edema - Neurological Neuro grossly intact: Yes - Psychological Associated symptoms: Normal affect, Normal mood - Skin Skin Temperature: Warm Skin Moisture: Dry Skin Color: Normal Course - Re-evaluation Re-evalutation: 08/28/19 12:25 Patient reports her headache is not improved, however the posterior cervical muscles are actually much less tender now to palpate. 08/28/19 13:27 Patient's child is going upstairs pediatrics. She does not want any further treatment emergency room and wants to leave with her daughter. 08/28/19 13:50 The patient's blood pressure was noted to be elevated when she came in this morning at 170/76. At the nurse recheck it as it had not been checked in several hours, and it is up to 180/84 with a pulse of 44. When the patient was seen here on 08/22/2019 with headache, her blood pressure was 145 systolic. It is never been recorded elevated in the past that I could tell from reviewing several years of ER and obstetrical visits. 08/28/19 15:24 When the patient's blood pressure went to 180/84, she was given Procardia XL 30 mg p.o. 1 hour later blood pressure was just over 200 systolic. At that point she was given hydralazine 20 mg IV. Her pressure did come down to 155/54. Her heart rate increased from 44 up to 84. She is now complaining of her headache returning. She is also now started vomiting. Her CT scan of her head was unremarkable. She will be given Zofran 8 mg IV at this time. 08/28/19 15:28 Patient's case was discussed with Dr. Reina again, he agrees that at this point admission and in-house management would be the best approach. - Vital Signs Vital signs: Temp Pulse Resp BP Pulse Ox 98.4 F 44 L 20 180/84 H 100 08/28/19 13:40 08/28/19 13:40 08/28/19 10:22 08/28/19 13:40 08/28/19 13:40 - Laboratory Result Diagrams: 08/28/19 11:08 08/28/19 11:08 Laboratory results interpreted by me: 08/28/19 08/28/19 08/28/19 11:08 11:08 11:28 RBC 3.69 L Hgb 11.3 L Hct 34.1 L RDW 15.3 H Chloride 108 H Total Protein 6.0 L Albumin 3.2 L Urine Protein 30 H Urine Blood LARGE H Ur Leukocyte Esterase SMALL H - Diagnostic Test Radiology reviewed: Image reviewed, Reports reviewed - CT scan of the head is unremarkable - Consults Dr. Reina Time consulted: 13:42 Consulted provider: follow-up in office - Try Procardia XL 30 mg, if pressure comes down, follow-up in office tomorrow. Critical Care Note - Critical Care Note Total time excluding time spent on procedures (mins): 40 Discharge - Discharge Clinical Impression: Viral syndrome, Muscle tension headache, OB surg complication NEC-unspec, hypertension Condition: Stable Disposition: ADMITTED INPATIENT Admitting Provider: [facility] Unit Admitted: Labor and Delivery Additional Instructions: Viral Syndrome: The physician has diagnosed a viral infection. Viruses not only cause "colds," but can cause many different symptoms including generalized aching, fever, headache, cough, diarrhea, nausea, vomiting, and fatigue. The treatment, for the most part, is simply relief of symptoms. This means that antibiotics are usually not given. Rest, fluids, pain medications and, occasionally, medication for the specific symptoms that are most bothersome will be prescribed. Use good handwashing to avoid passing the virus to others. Shared toys should be cleaned with disinfectant. Clean the toilets, sinks, and counter surfaces in bathrooms. Launder clothing in hot water. Contact the physician if you develop any new or unusual symptoms such as severe headache, stiff neck, high fever, chest pain, productive cough, or shortness of breath. You should be rechecked if you don't see marked improvement within seven to 10 days. Headache: The physician does not feel that the headache you are experiencing has a serious underlying cause. Most headaches are due to muscle tension (tension headache). Occasionally, headaches are secondary to changes in the blood vessels of the scalp (vascular headache and migraine headache). Sometimes, a headache is the first symptom of another developing illness, such as a viral infection. You have no evidence of stroke, bleeding, meningitis, or other serious cause of your headache. The treatment of headaches varies with the severity and cause of the pain. Not all headaches need pain shots. In fact, there is evidence that using narcotics for headaches may make them worse in the long run. The physician will determine the therapy that's in your best interest. If you develop a fever, if the headache is different from any you've previously experienced, or if the headache progressively worsens, then call your physician at once or go to the emergency room. Your wound looks good. You should left the excess fat up to let the area stay dry as much as possible. Keep the wound clean and dressed. Your headache is being caused by muscle tension and the viral syndrome that you are experiencing. You should take Tylenol and ibuprofen for your headache. Drink plenty of fluids and get plenty of rest. Follow-up with your MATH PROFESSOR doctor this week if not improving. RETURN TO THE EMERGENCY ROOM IF ANY NEW OR WORSENING SYMPTOMS. Referrals: EUNICE REINA MD [ACTIVE STAFF] - Follow up tomorrow Scribe Attestation: 08/28/19 13:27 I personally performed the services described in the documentation, reviewed and edited the documentation which was dictated to the scribe in my presence, and it accurately records my words and actions. I personally performed the services described in the documentation, reviewed and edited the documentation which was dictated to the scribe in my presence, and it accurately records my words and actions.
[2019-08-28] MEDS ORDERED: DEXTROSE 5%-LACTATED RINGERS 1,000 ML IV ONE (11:57)
[2019-08-28] MEDS ORDERED: METHOCARBAMOL INJ/PF 1000 MG/10 ML SDV IV ONE (12:24)
[2019-08-28] MEDS ORDERED: NIFEDIPINE 30 MG TAB.ER.24 PO ONE (13:47)
[2019-08-28] MEDS ORDERED: HYDROCODONE/ACETAMINOPHEN 5-325 MG TABLET PO ONE (13:48)
[2019-08-28] MEDS ORDERED: HYDRALAZINE HCL INJ/PF 20 MG/1 ML SDV IV ONE ×3 (14:52→22:00)
--- NOTE | 2019-08-28 15:07 | RADIOLOGY REPORT (SQ) ---
EXAM DESCRIPTION: CT HEAD WITHOUT COMPLETED DATE/TIME: 08/28/2019 2:50 pm REASON FOR STUDY: hypertension and headache COMPARISON: None. TECHNIQUE: Axial images acquired through the brain without intravenous contrast. Images reviewed wi th bone, brain and subdural windows. Images stored on PACS. All CT scanners at this facility use dose modulation, iterative reconstruction, and/or weight based d osing when appropriate to reduce radiation dose to as low as reasonably achievable (ALARA). [facility]: Dose Right [facility]: CareDose [facility]: Dose Right [facility]: Teradose 4D [facility]: Smart i.Sec RADIATION DOSE: CT Rad equipment meets quality standard of care and radiation dose reduction techniq ues were employed. CTDIvol: 53.2 mGy. DLP: 1124 mGy-cm. mGy. LIMITATIONS: None. FINDINGS: VENTRICLES: Normal size and contour. CEREBRUM: No masses. No hemorrhage. No midline shift. No evidence for acute infarction. Normal gra y/white matter differentiation. No areas of low density in the white matter. CEREBELLUM: No masses. No hemorrhage. No alteration of density. No evidence for acute infarction. EXTRAAXIAL SPACES: No fluid collections. No masses. ORBITS AND GLOBE: No intra- or extraconal masses. Normal contour of globe without masses. CALVARIUM: No fracture. PARANASAL SINUSES: No fluid or mucosal thickening. SOFT TISSUES: No mass or hematoma. OTHER: No other significant finding. IMPRESSION: NORMAL BRAIN CT WITHOUT CONTRAST. EVIDENCE OF ACUTE STROKE: NO. COMMENT: Quality ID # [id number]: Final reports with documentation of one or more dose reduction techniques (e.g., Automated exposure control, adjustment of the mA and/or kV according to patient size, use of iterative reconstruction technique) TECHNICAL DOCUMENTATION: JOB ID: [id number] [employer]- All Rights Reserved Reading location - IP/workstation name: [email or web address]
[2019-08-28] MEDS ORDERED: ONDANSETRON HCL INJ/PF 4 MG/2 ML SDV IV ONE (15:23)
[2019-08-28] MEDS ORDERED: FENTANYL CITRATE INJ/PF 100 MCG/2 ML AMPUL IV ONE (15:42)
[2019-08-28] MEDS ORDERED: MORPHINE SULFATE 10 MG/ML INJ IV ONE (16:22)
[2019-08-28] MEDS ORDERED: MAGNESIUM SULFATE 4 GM/100 ML RTUPB IV ONE ×3 (17:16→18:00)
[2019-08-28] MEDS ORDERED: MAGNESIUM SULFATE 20 GM/500 ML RTUINJ IV ONE (17:17)
--- NOTE | 2019-08-28 17:24 | Admission Physical ---
Datetime Report Generated by CPN: 08/28/2019 17:23 CURRENT ADMISSION Chief Complaint: Other Chief Complaint Other: Headache Indication for Induction: Not Applicable Admit Impression : Term, Intrauterine ; No Active Labor; Ruptured Membranes; Repeat Section Admit Impression- Other: Post hypertension Admit Plan: Admit to Unit Admit Plan- Other: Begin Mag Sulfate ALLERGIES Medication Allergies: No Medication Allergies: No Known Allergies (08/16/2019) Latex: No Latex Allergies Food Allergies: none Environmental Allergies: None OBSTETRICAL HISTORY EDC: 08/30/2019 00:00 : 7 Para: 5 Term: 5 SAB: 1 Ectopic: 0 Livin Cesareans: 2 VBACs: 0 Multiple Births: 0 Gestational Diabetes: No Rh Sensitization: No Incompetent Cervix: No NASIR: No Infertility: No ART Treatment: No Uterine Anomaly: No IUGR: No Hx Previous C/S: Yes Macrosomia: No Hx Loss/Stillborn: No PIH: No Hx : No Placenta Previa/Abruption: No Depression/PP Depression: No PTL/PROM: No Post Hemorrhage: No Current Procedures: Ultrasound; NST Obstetrical History Comments: G1- 2002, G2- 2003, G3- 2005, G4- 2005, SAB G5- 2013, for decreased FHR. - 2014, for decreased FHR. G7- Current SEE RECORDS Alcohol: No Marijuana : No Cocaine: No Other Illicit Drugs: No Cigarettes: Never Smoker. 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 Heart Disease: No Hosp/Surgery: Yes Autoimmune Disorder: No Anesthetic Complications: No Kidney Disease: No Abnormal Pap Smear: Yes Neuro/Epilepsy: No Psychiatric Disorders: No Other Medical Diseases: No Hepatitis/Liver Disease: No Significant Family History: No Varicosities/Phlebitis: No Trauma/Violence : No Thyroid Dysfunction: No Medical History Comments: Asthma, Gallbladder remvoed 2016, Child and C-sections, abnormal Pap smear 2013 INFECTIOUS HISTORY Gonorrhea: Yes Genital Herpes: Yes Chlamydia: Yes Tuberculosis: No Syphilis: No Hepatitis: No HIV/AIDS Exposure: No Rash or Viral Illness: No HPV: No Infectious History Comments: Gonorrhea and chlamydia 2013. Currently taking valtrex started taking meds with last outbreak PHYSICAL EXAM General: Abnormal HEENT: Abnormal Neurologic: Abnormal Thyroid: Normal Heart: Normal Lungs: Normal Breast: Deferred Back: Normal Abdomen: Abnormal Genitourinary Exam: Deferred Extremities: Abnormal DTRs: Abnormal Pelvic Type: Not Done Physical Exam Comments: Pt is in discomfort and has a headache with a normal ct scan. Her abdominal incision is clean dry and intact. Her reflexes are brisk Vital Signs: Reviewed VAGINAL EXAM Dilatation: 1 Effacement: 0 Station: -3 Contraction Comments: irreg MEMBRANES Membranes: Ruptured Amniotic Fluid Color: Clear FETUS A EGA: 39.5 Monitoring: External US FHR- Baseline: 140 Variability: Moderate 6-25bpm Accelerations: 15X15 Decelerations: None Presentation: Vertex Admit Comment: Will begin MgSO4 and hydralazine for blood pressure. PLANS FOR LABOR AND DELIVERY Labor and Delivery: None Pain Management: Spinal Feeding Preference: Both Benefit of Breast Feed Discussed: Yes Circumcision: N/A INFORMED CONSENT Informed Consent Obtained: Section Delivery; Risks, Benefits and Alternatives Discussed Signature: with User ID: [email or web address]
[2019-08-28] MEDS ORDERED: HYDROMORPHONE HCL INJ/PF 2 MG/ML AMPULE IV PRN (17:27)
[2019-08-28] MEDS ORDERED: OXYCODONE-ACETAMINOPHEN 5-325 MG TABLET PO PRN (17:27)
[2019-08-28] MEDS ORDERED: SIMETHICONE 80 MG TAB.CHEW PO PRN (17:27)
[2019-08-28] MEDS ORDERED: ACETAMINOPHEN 325 MG TABLET PO PRN (17:27)
[2019-08-28] MEDS: MAGNESIUM SULFATE 20 GM/500 ML RTUINJ IV PRN (17:46)
[2019-08-28] MEDS ORDERED: HYDROMORPHONE HCL INJ/PF 2 MG/ML AMPULE ONE (18:08)
[2019-08-28] MEDS ORDERED: HYDRALAZINE HCL INJ/PF 20 MG/1 ML SDV ONE ×2 (18:48→21:16)
[2019-08-28] MEDS ORDERED: PROMETHAZINE HCL INJ 25 MG/1 ML VIAL ONE (19:28)
[2019-08-28] MEDS: PROMETHAZINE HCL INJ 25 MG/1 ML VIAL IV PRN (19:31)
[2019-08-28] MEDS: DOCUSATE SODIUM 100 MG CAPSULE PO SCH (20:00)
[2019-08-28] MEDS ORDERED: IBUPROFEN 800 MG TABLET ONE (21:16)
[2019-08-28] MEDS: IBUPROFEN 800 MG TABLET PO SCH (21:20)
[2019-08-29] MEDS: IBUPROFEN 800 MG TABLET PO SCH ×3 (00:10→12:43)
[2019-08-29] MEDS ORDERED: MAGNESIUM SULFATE 20 GM/500 ML RTUINJ IV ONE ×2 (03:51→14:07)
[2019-08-29] MEDS: MAGNESIUM SULFATE 20 GM/500 ML RTUINJ IV PRN ×2 (03:55→14:10)
[2019-08-29] MEDS ORDERED: OXYCODONE-ACETAMINOPHEN 5-325 MG TABLET ONE ×2 (04:37→19:36)
[2019-08-29] MEDS ORDERED: IBUPROFEN 800 MG TABLET ONE ×3 (06:43→19:29)
[2019-08-29] MEDS ORDERED: HYDRALAZINE HCL INJ/PF 20 MG/1 ML SDV IV ONE ×3 (10:02→23:06)
[2019-08-29] MEDS ORDERED: PROMETHAZINE HCL INJ 25 MG/1 ML VIAL ONE (10:04)
[2019-08-29] MEDS ORDERED: HYDRALAZINE HCL INJ/PF 20 MG/1 ML SDV ONE ×2 (10:04→23:03)
[2019-08-29] MEDS: PROMETHAZINE HCL INJ 25 MG/1 ML VIAL IV PRN (10:06)
[2019-08-29] MEDS ORDERED: DOCUSATE SODIUM 100 MG CAPSULE ONE (10:17)
[2019-08-29] MEDS ORDERED: PRENATAL VITAMIN W DHA CAPSULE PO ONE (10:17)
[2019-08-29] MEDS: DOCUSATE SODIUM 100 MG CAPSULE PO SCH (10:18)
[2019-08-29] MEDS: PRENATAL VITAMIN W DHA CAPSULE PO SCH (10:18)
[2019-08-29] MEDS ORDERED: LABETALOL HCL 200 MG TABLET ONE ×2 (10:41→22:08)
[2019-08-29] MEDS: LABETALOL HCL 200 MG TABLET PO SCH ×2 (10:50→22:10)
[2019-08-29] MEDS ORDERED: HYDRALAZINE HCL 25 MG TABLET PO SCH (19:05)
[2019-08-29] MEDS: OXYCODONE-ACETAMINOPHEN 5-325 MG TABLET PO PRN (19:38)
[2019-08-30] MEDS ORDERED: HYDROMORPHONE HCL INJ/PF 2 MG/ML AMPULE IV ONE ×2 (01:00→06:56)
[2019-08-30] MEDS ORDERED: HYDROMORPHONE HCL INJ/PF 2 MG/ML AMPULE ONE ×2 (01:05→06:58)
[2019-08-30] MEDS ORDERED: HYDRALAZINE HCL INJ/PF 20 MG/1 ML SDV ONE ×2 (01:41→06:40)
[2019-08-30] MEDS ORDERED: HYDRALAZINE HCL INJ/PF 20 MG/1 ML SDV IV ONE ×4 (01:49→06:45)
[2019-08-30] MEDS ORDERED: PROMETHAZINE HCL INJ 25 MG/1 ML VIAL ONE (01:50)
[2019-08-30] MEDS: PROMETHAZINE HCL INJ 25 MG/1 ML VIAL IV PRN (01:53)
[2019-08-30] MEDS ORDERED: OXYCODONE-ACETAMINOPHEN 5-325 MG TABLET ONE (03:29)
[2019-08-30] MEDS ORDERED: MORPHINE SULFATE 10 MG/ML INJ ONE (03:33)
[2019-08-30] MEDS ORDERED: ONDANSETRON HCL INJ/PF 4 MG/2 ML SDV IV ONE (04:10)
[2019-08-30] MEDS ORDERED: ONDANSETRON HCL INJ/PF 4 MG/2 ML SDV ONE (04:14)
[2019-08-30] MEDS: DOCUSATE SODIUM 100 MG CAPSULE PO SCH ×3 (07:39→18:40)
[2019-08-30] MEDS: IBUPROFEN 800 MG TABLET PO SCH ×4 (07:39→18:39)
[2019-08-30] MEDS ORDERED: IBUPROFEN 800 MG TABLET ONE ×2 (07:42→12:01)
[2019-08-30] MEDS ORDERED: NIFEDIPINE 30 MG TAB.ER.24 PO ONE ×4 (08:16→10:56)
[2019-08-30] MEDS ORDERED: BUTALB/ACETAMINOPHEN/CAFFEINE 1 TAB EACH PO PRN (08:17)
[2019-08-30] MEDS ORDERED: BUTALB/ACETAMINOPHEN/CAFFEINE 1 TAB EACH ONE (08:21)
[2019-08-30] MEDS ORDERED: LABETALOL HCL 200 MG TABLET PO SCH (08:30)
[2019-08-30] MEDS ORDERED: NIFEDIPINE 30 MG TAB.ER.24 PO SCH (10:00)
[2019-08-30] MEDS ORDERED: LABETALOL HCL 200 MG TABLET ONE ×2 (10:56→14:20)
[2019-08-30] MEDS: PRENATAL VITAMIN W DHA CAPSULE PO SCH (11:01)
[2019-08-30] MEDS ORDERED: LABETALOL HCL INJ 20 MG/4 ML DISP.SYRIN IV ONE ×2 (13:17→14:30)
[2019-08-30] MEDS: LABETALOL HCL 200 MG TABLET PO SCH ×2 (14:25→21:51)
[2019-08-30] MEDS ORDERED: HYDRALAZINE HCL 25 MG TABLET PO SCH (19:00)
[2019-08-30] MEDS: OXYCODONE-ACETAMINOPHEN 5-325 MG TABLET PO PRN (19:41)
[2019-08-31] MEDS: IBUPROFEN 800 MG TABLET PO SCH ×3 (00:31→13:58)
[2019-08-31] MEDS: LABETALOL HCL 200 MG TABLET PO SCH ×2 (05:49→13:58)
[2019-08-31] MEDS: OXYCODONE-ACETAMINOPHEN 5-325 MG TABLET PO PRN (05:51)
[2019-08-31] MEDS ORDERED: NIFEDIPINE 30 MG TAB.ER.24 PO SCH (10:00)
[2019-08-31] MEDS: PRENATAL VITAMIN W DHA CAPSULE PO SCH (10:42)
[2019-08-31] MEDS: DOCUSATE SODIUM 100 MG CAPSULE PO SCH (10:42)
--- NOTE | 2019-08-31 11:29 | PDOC DISCHARGE SUMMARY ---
Impression - Admit/DC Date/PCP Admission Date/Primary Care Provider: 08/28/19 15:48 EUNICE COOPER MD Discharge Date: 08/31/19 - Discharge Diagnosis (1) hypertension Is this a current diagnosis for this admission?: Yes - Assessment Summary: The pt was admitted with hypertension and a headache from the ER. She had a normal head CT scan. On labor and delivery she was treated with MgSO4 and htn medication. After control of bp was established and her headache was gone she was converted to oral meds and moved to post . She is doing well today and is asking to go home. - Additional Information Resuscitation Status: Full Code Discharge Diet: Regular Discharge Activity: Balance Activity w/Rest Referrals: EUNICE COOPER MD [Primary Care Provider] - Follow up tomorrow Prescriptions: Labetalol HCl [Normodyne 200 mg Tablet] 200 mg PO Q8 #90 tablet Nifedipine [Procardia XL 30 mg Tablet] 60 mg PO DAILY #60 tab.er.24 Home Medications: Ibuprofen [Motrin 800 mg Tablet] 800 mg PO Q6 #60 tablet 08/19/19 Oxycodone HCl/Acetaminophen [Percocet 5-325 mg Tablet] 1 tab PO Q4HP PRN #30 tablet 08/19/19 Labetalol HCl [Normodyne 200 mg Tablet] 200 mg PO Q8 #90 tablet 08/31/19 Nifedipine [Procardia XL 30 mg Tablet] 60 mg PO DAILY #60 tab.er.24 08/31/19 History of Present Illiness History of Present Illness: TOVA BOSWELL is a 34 year old female Physical Exam - Physical Exam Vital Signs: Temp Pulse Resp BP Pulse Ox 98.6 F 59 L 16 154/86 H 100 08/31/19 05:14 08/31/19 10:46 08/31/19 05:14 08/31/19 10:46 08/31/19 05:14 Intake & Output 08/30/19 08/31/19 09/01/19 06:59 06:59 06:59 Intake Total 500 480 Balance 500 480 Weight 103 kg Results Laboratory Results: WBC 5.9 10^3/uL (4.0-10.5) 08/28/19 11:08 RBC 3.69 10^6/uL (3.72-5.28) L 08/28/19 11:08 Hgb 11.3 g/dL (12.0-15.5) L 08/28/19 11:08 Hct 34.1 % (36.0-47.0) L 08/28/19 11:08 MCV 93 fl (80-97) 08/28/19 11:08 MCH 30.6 pg (27.0-33.4) 08/28/19 11:08 MCHC 33.0 g/dL (32.0-36.0) 08/28/19 11:08 RDW 15.3 % (11.5-14.0) H 08/28/19 11:08 Plt Count 257 10^3/uL (150-450) 08/28/19 11:08 Lymph % (Auto) 31.9 % (13-45) 08/28/19 11:08 Coles % (Auto) 7.3 % (3-13) 08/28/19 11:08 Eos % (Auto) 1.4 % (0-6) 08/28/19 11:08 Baso % (Auto) 0.5 % (0-2) 08/28/19 11:08 Absolute Neuts (auto) 3.4 10^3/uL (1.7-8.2) 08/28/19 11:08 Absolute Lymphs (auto) 1.9 10^3/uL (0.5-4.7) 08/28/19 11:08 Absolute Monos (auto) 0.4 10^3/uL (0.1-1.4) 08/28/19 11:08 Absolute Eos (auto) 0.1 10^3/uL (0.0-0.6) 08/28/19 11:08 Absolute Basos (auto) 0.0 10^3/uL (0.0-0.2) 08/28/19 11:08 Seg Neutrophils % 58.9 % (42-78) 08/28/19 11:08 Sodium 140.4 mmol/L (137-145) 08/28/19 11:08 Potassium 4.1 mmol/L (3.6-5.0) 08/28/19 11:08 Chloride 108 mmol/L (98-107) H 08/28/19 11:08 Carbon Dioxide 25 mmol/L (22-30) 08/28/19 11:08 Anion Gap 7 (5-19) 08/28/19 11:08 BUN 18 mg/dL (7-20) 08/28/19 11:08 Creatinine 0.61 mg/dL (0.52-1.25) 08/28/19 11:08 Est GFR ( Amer) > 60 (>60) 08/28/19 11:08 Est GFR (MDRD) Non-Af > 60 (>60) 08/28/19 11:08 Glucose 88 mg/dL (75-110) 08/28/19 11:08 Calcium 9.5 mg/dL (8.4-10.2) 08/28/19 11:08 Total Bilirubin 0.3 mg/dL (0.2-1.3) 08/28/19 11:08 Direct Bilirubin 0.1 mg/dL (0.0-0.4) 08/28/19 11:08 Neonat Total Bilirubin Not Reportable 08/28/19 11:08 Neonat Direct Bilirubin Not Reportable 08/28/19 11:08 Neonat Indirect Bili Not Reportable 08/28/19 11:08 AST 25 U/L (14-36) 08/28/19 11:08 ALT 47 U/L (<35) 08/28/19 11:08 Alkaline Phosphatase 118 U/L (38-126) 08/28/19 11:08 Creatine Kinase 44 U/L (30-135) 08/28/19 11:08 Total Protein 6.0 g/dL (6.3-8.2) L 08/28/19 11:08 Albumin 3.2 g/dL (3.5-5.0) L 08/28/19 11:08 Urine Color YELLOW 08/28/19 11:28 Urine Appearance CLEAR 08/28/19 11:28 Urine pH 6.0 (5.0-9.0) 08/28/19 11:28 Ur Specific Randolph 1.017 08/28/19 11:28 Urine Protein 30 mg/dL (NEGATIVE) H 08/28/19 11:28 Urine Glucose (UA) NEGATIVE mg/dL (NEGATIVE) 08/28/19 11:28 Urine Ketones NEGATIVE mg/dL (NEGATIVE) 08/28/19 11:28 Urine Blood LARGE (NEGATIVE) H 08/28/19 11:28 Urine Nitrite NEGATIVE (NEGATIVE) 08/28/19 11:28 Urine Bilirubin NEGATIVE (NEGATIVE) 08/28/19 11:28 Urine Urobilinogen NEGATIVE mg/dL (<2.0) 08/28/19 11:28 Ur Leukocyte Esterase SMALL (NEGATIVE) H 08/28/19 11:28 Urine WBC (Auto) 6 /HPF 08/28/19 11:28 Urine RBC (Auto) 0 /HPF 08/28/19 11:28 Squamous Epi Cells Auto 2 /HPF 08/28/19 11:28 Urine Mucus (Auto) OCC /LPF 08/28/19 11:28 Urine Ascorbic Acid NEGATIVE (NEGATIVE) 08/28/19 11:28 Influenza A (Rapid) NEGATIVE (NEGATIVE) 08/28/19 10:50 Influenza B (Rapid) NEGATIVE (NEGATIVE) 08/28/19 10:50 Impressions: Head CT 08/28/19 13:53 IMPRESSION: NORMAL BRAIN CT WITHOUT CONTRAST. EVIDENCE OF ACUTE STROKE: NO. Stroke Is this a Stroke Patient?: No Acute Heart Failure - Is this a Heart Failure Patient?: No
[2019-08-31 12:46] VITALS: BP 146/70
== END 2019-08-31 14:25 | disposition home or self-care (01) | DRG 776 ==
LOC: ER 10:03 → EH 15:48 → LR 17:15 → 2N 08-30 15:53
PROVIDERS: ADMIT Obstetrics & Gynecology; ATTEND Specialist
DX: O16.5 Unspecified maternal hypertension, complicating the puerperium (principal)
CPT/HCPCS: 36415; 70450; 80053; 81001; 82550; 85025; 87040; 87804; 94799; 96361; 96374; 96375; 99291; J0360; J0780; J1170; J1200; J1885; J2270; J2405; J2550; J2800; J3010; J3475; J3490; J7030

== ENCOUNTER → 2019-09-28 | Outpatient (CLI) | payer MEDICAID | LOC: LAB 19:37 | PROVIDERS: ATTEND Nurse Practitioner Family | DX: L02.91 Cutaneous abscess, unspecified (principal) | CPT/HCPCS: 87070; 87075; 87077; 87186; 87205 ==

== ENCOUNTER 2020-06-11 07:18 | Emergency (ER) | payer MEDICAID ==
[2020-06-11 10:02] LABS: ABSOLUTE EOSINOPHILS # (AUTO) 0.1 10^3/uL (0.0-0.6); ABSOLUTE LYMPHOCYTES (AUTO) 2.4 10^3/uL (0.5-4.7); ABSOLUTE MONOCYTES (AUTO) 0.5 10^3/uL (0.1-1.4); ABSOLUTE NEUT (AUTO) 2.5 10^3/uL (1.7-8.2); BASOPHILS % (AUTO) 0.4 % (0-2); EOSINOPHILS % (AUTO) 1.1 % (0-6); HEMATOCRIT 36.2 % (36.0-47.0); HEMOGLOBIN 12.3 g/dL (12.0-15.5); LYMPHOCYTES % (AUTO) 43.7 % (13-45); MEAN CORPUSCULAR HEMOGLOBIN 31.4 pg (27.0-33.4); MEAN CORPUSCULAR HGB CONC 33.8 g/dL (32.0-36.0); MEAN CORPUSCULAR VOLUME 93 fl (80-97); MONOCYTES % (AUTO) 9.2 % (3-13); PLATELET COUNT 233 10^3/uL (150-450); RED CELL DISTRIBUTION WIDTH 13.8 % (11.5-14.0); SEGMENTED NEUTROPHILS % (AUTO) 45.6 % (42-78); TOTAL CELLS COUNTED % (AUTO) 100 %; WHITE BLOOD COUNT 5.5 10^3/uL (4.0-10.5)
[2020-06-11 10:09] LABS: APPEARANCE,URINE SLIGHTLY-CLOUDY; BILIRUBIN,URINE NEGATIVE (NEGATIVE); COLOR,URINE YELLOW; GLUCOSE, URINE NEGATIVE (NEGATIVE); KETONES,URINE NEGATIVE (NEGATIVE); LEUKOCYTE ESTERASE,URINE NEGATIVE (NEGATIVE); NITRITE,URINE NEGATIVE (NEGATIVE); PROTEIN,URINE 100 mg/dL (NEGATIVE); URINE SPECIFIC GRAVITY 1.026
[2020-06-11 10:22] LABS: ALBUMIN 4.2 g/dL (3.5-5.0); ALKALINE PHOSPHATASE 62 U/L (38-126); ANION GAP 5 (5-19); ASPARTATE AMINO TRANSFERASE 21 U/L (14-36); BILIRUBIN,DIRECT 0.2 mg/dL (0.0-0.4); BILIRUBIN,TOTAL 0.4 mg/dL (0.2-1.3); BLOOD UREA NITROGEN 12 mg/dL (7-20); CARBON DIOXIDE 28 mmol/L (22-30); CHLORIDE 108 mmol/L (98-107); GLUCOSE 100 mg/dL (75-110); POTASSIUM 3.9 mmol/L (3.6-5.0); TOTAL PROTEIN 6.8 g/dL (6.3-8.2)
[2020-06-11] MEDS ORDERED: ACETAMINOPHEN 325 MG TABLET PO ONE (12:21)
[2020-06-11] MEDS ORDERED: PROMETHAZINE HCL 25 MG TABLET PO ONE (12:21)
--- NOTE | 2020-06-11 12:24 | ER Document Report ---
ED GI/ - General Chief Complaint: Abdominal Pain Stated Complaint: ABDOMINAL PAIN Time Seen by Provider: 06/11/20 11:41 Primary Care Provider: [facility] [Provider Group] - Follow up as needed [facility] [NO LOCAL MD] - Follow up as needed TASIA ELKINS NP [Primary Care Provider] - Follow up as needed Mode of Arrival: Ambulatory Information source: Patient Notes: This is a 34-year-old female here today for abdominal pain has been ongoing for 2 weeks. She says it is a cramping that is associated with food and water that comes and goes. She says her symptoms are severe. The pain is located around the umbilicus and radiates come to the right side. Her last bowel movement was this morning and she has been having some diarrhea for the past week. She has had occasional vomiting with these episodes and last episode was yesterday. Has headaches about every other day which is her baseline. She states she also has a little suprapubic tenderness. TRAVEL OUTSIDE OF THE [place] IN LAST 30 DAYS: No - HPI Patient complains to provider of: Abdominal pain Onset: Other - past 2 weeks Timing/Duration: Intermittent Quality of pain: Cramping Severity at maximum: Severe Severity in ED: Severe Location: RLQ LMP: 05/14/2020 Sexual history: Active Associated symptoms: Diarrhea. denies: Blood in stool, Constipation, Dizzy, Dysuria, Fever, Hard stool, Lightheaded, Shortness of breath Exacerbated by: Food Relieved by: Other - heat, hot shower Similar symptoms previously: No Recently seen / treated by doctor: No - Related Data Allergies/Adverse Reactions: No Known Allergies Allergy (Verified 06/11/20 07:41) Home Medications: bp meds but not taking Past Medical History - General Information source: Patient - Social History Smoking Status: Current Some Day Smoker Chew tobacco use (# tins/day): No Frequency of alcohol use: Occasional Drug Abuse: None, Marijuana Occupation: none Lives with: Family Family History: Reviewed & Not Pertinent Patient has homicidal ideation: No - Past Medical History Cardiac Medical History: Reports: Hx Hypertension Pulmonary Medical History: Reports: None Denies: Hx Tuberculosis EENT Medical History: Reports: None Neurological Medical History: Reports: None Endocrine Medical History: Reports: None Renal/ Medical History: Reports: None. Denies: Hx Ectopic , Hx Peritoneal Dialysis Malignancy Medical History: Reports: None GI Medical History: Reports: None, Hx Gastroesophageal Reflux Disease, Hx Irritable Bowel Musculoskeletal Medical History: Reports None Skin Medical History: Reports None Psychiatric Medical History: Reports: None, Hx Anxiety, Hx Bipolar Disorder, Hx Depression Traumatic Medical History: Reports: None Infectious Medical History: Reports: None Past Surgical History: Reports: Hx Section - X2, Hx Cholecystectomy - Immunizations Immunizations up to date: Yes Hx Diphtheria, Pertussis, Tetanus Vaccination: Yes - UTD Review of Systems - Review of Systems Constitutional: No symptoms reported. denies: Fever EENT: No symptoms reported. denies: Blurred vision, Double vision Cardiovascular: No symptoms reported. denies: Palpitations Respiratory: No symptoms reported. denies: Cough, Short of breath Gastrointestinal: Abdominal pain, Diarrhea, Nausea, Vomiting. denies: Blood streaked bowels, Blood in vomit, Black stools, Rectal bleeding Genitourinary: No symptoms reported. denies: Burning, Dysuria, Hematuria Female Genitourinary: No symptoms reported. denies: Vaginal discharge, Vaginal bleeding Musculoskeletal: No symptoms reported Skin: No symptoms reported Hematologic/Lymphatic: No symptoms reported Neurological/Psychological: No symptoms reported Physical Exam - Vital signs Vitals: Temp Pulse Resp BP Pulse Ox 98.2 F 62 18 154/90 H 100 06/11/20 07:41 06/11/20 07:41 06/11/20 07:41 06/11/20 07:41 06/11/20 07:41 - General General appearance: Appears well In distress: None - HEENT Head: Normocephalic Eyes: Normal Conjunctiva: Normal Cornea: Normal Pupils: PERRL Mucous membranes: Normal Neck: Normal - Respiratory Respiratory status: No respiratory distress Breath sounds: Normal - Cardiovascular Rhythm: Regular Heart sounds: S1 appreciated, S2 appreciated Murmur: No - Abdominal Inspection: Normal Distension: No distension Bowel sounds: Normal Tenderness: Tender - umbilical, RLQ, and suprapubic - Genitourinary External exam: Normal. No: Lesions Speculum exam: Vaginal discharge. No: Vaginal lacerations Vaginal bleeding: None Bimanuel exam: Normal. No: Cervical motion tender, Adnexal tenderness Notes: Exam performed with Blaire Farire on standby. - Neurological Neuro grossly intact: Yes Cognition: Normal Orientation: AAOx4 Speech: Normal - Psychological Associated symptoms: Normal affect, Normal mood - Skin Skin Temperature: Warm Skin Moisture: Dry Skin Color: Normal Course - Re-evaluation Re-evalutation: 06/11/20 15:07 Patient with lower pelvic abdominal tenderness. Patient did have a positive test with a gestational sac noted on ultrasound. Ectopic precautions were given to patient. Patient advised that she will need repeat blood work and a repeat ultrasound to further evaluate her status. Patient denies any additional diarrhea episodes while here in the department. Patient will be provided with an outpatient stool collection kit with instructions for testing. Good return precautions discussed with patient. Patient verbalized understanding and is agreeable with discharge plan of care. Patient presents with abdominal pain without signs of peritonitis or other life- threatening or serious etiology. Patient appears stable for discharge and has been instructed to return immediately if the symptoms worsen in any way for reev aluation. - Vital Signs Vital signs: Temp Pulse Resp BP Pulse Ox 98.3 F 60 18 153/88 H 100 06/11/20 15:32 06/11/20 15:32 06/11/20 15:32 06/11/20 15:32 06/11/20 15:32 - Laboratory Result Diagrams: 06/11/20 09:30 06/11/20 09:30 Laboratory results interpreted by me: 06/11/20 06/11/20 06/11/20 09:30 09:30 09:30 Chloride 108 H Beta HCG, Quant 1166.30 H Urine Protein 100 H Urine Urobilinogen 2.0 H Urine HCG, Qual POSITIVE H 06/11/20 15:07 Labs- All tests 24 hr 06/11/20 06/11/20 06/11/20 09:30 09:30 09:30 WBC 5.5 RBC 3.90 Hgb 12.3 Hct 36.2 MCV 93 MCH 31.4 MCHC 33.8 RDW 13.8 Plt Count 233 Lymph % (Auto) 43.7 [place] % (Auto) 9.2 Eos % (Auto) 1.1 Baso % (Auto) 0.4 Absolute Neuts (auto) 2.5 Absolute Lymphs (auto) 2.4 Absolute Monos (auto) 0.5 Absolute Eos (auto) 0.1 Absolute Basos (auto) 0.0 Seg Neutrophils % 45.6 Sodium 140.8 Potassium 3.9 Chloride 108 H Carbon Dioxide 28 Anion Gap 5 BUN 12 Creatinine 0.57 Est GFR ( Amer) > 60 Est GFR (MDRD) Non-Af > 60 Glucose 100 Calcium 10.0 Total Bilirubin 0.4 Direct Bilirubin 0.2 Neonat Total Bilirubin Not Reportable Neonat Direct Bilirubin Not Reportable Neonat Indirect Bili Not Reportable AST 21 ALT 29 Alkaline Phosphatase 62 Total Protein 6.8 Albumin 4.2 Lipase 186.7 Beta HCG, Quant Total Beta HCG Urine Color YELLOW Urine Appearance SLIGHTLY-CLOUDY Urine pH 8.0 Ur Specific [place] 1.026 Urine Protein 100 H Urine Glucose (UA) NEGATIVE Urine Ketones NEGATIVE Urine Blood NEGATIVE Urine Nitrite NEGATIVE Urine Bilirubin NEGATIVE Urine Urobilinogen 2.0 H Ur Leukocyte Esterase NEGATIVE Urine WBC (Auto) 2 Urine RBC (Auto) 0 Urine Bacteria (Auto) TRACE Squamous Epi Cells Auto 1 Urine Mucus (Auto) MOD Urine Ascorbic Acid NEGATIVE Urine HCG, Qual POSITIVE H Epi Cells (Wet Prep) Bacteria (Wet Prep) Trichomonas (Wet Prep) Vaginal WBC Vaginal RBC Vaginal Yeast Chlamydia DNA (PCR) N.gonorrhoeae DNA (PCR) 06/11/20 06/11/20 06/11/20 09:30 12:53 12:53 WBC RBC Hgb Hct MCV MCH MCHC RDW Plt Count Lymph % (Auto) [place] % (Auto) Eos % (Auto) Baso % (Auto) Absolute Neuts (auto) Absolute Lymphs (auto) Absolute Monos (auto) Absolute Eos (auto) Absolute Basos (auto) Seg Neutrophils % Sodium Potassium Chloride Carbon Dioxide Anion Gap BUN Creatinine Est GFR ( Amer) Est GFR (MDRD) Non-Af Glucose Calcium Total Bilirubin Direct Bilirubin Neonat Total Bilirubin Neonat Direct Bilirubin Neonat Indirect Bili AST ALT Alkaline Phosphatase Total Protein Albumin Lipase Beta HCG, Quant 1166.30 H Total Beta HCG POSITIVE Urine Color Urine Appearance Urine pH Ur Specific [place] Urine Protein Urine Glucose (UA) Urine Ketones Urine Blood Urine Nitrite Urine Bilirubin Urine Urobilinogen Ur Leukocyte Esterase Urine WBC (Auto) Urine RBC (Auto) Urine Bacteria (Auto) Squamous Epi Cells Auto Urine Mucus (Auto) Urine Ascorbic Acid Urine HCG, Qual Epi Cells (Wet Prep) 3+ EPITHELIALS SEEN Bacteria (Wet Prep) 4+ BACTERIA SEEN Trichomonas (Wet Prep) NO TRICHOMONAS SEEN Vaginal WBC 1+ WBCS SEEN Vaginal RBC NO RBCS SEEN Vaginal Yeast NO YEAST SEEN Chlamydia DNA (PCR) NOT DETECTED N.gonorrhoeae DNA (PCR) NOT DETECTED - Diagnostic Test Radiology reviewed: Reports reviewed Discharge - Discharge Clinical Impression: Bacterial vaginosis in , test positive Diarrhea Qualifiers: Diarrhea type: unspecified type Qualified Code(s): R19.7 - Diarrhea, unspecified Abdominal pain Qualifiers: Abdominal location: unspecified location Qualified Code(s): R10.9 - Unspecified abdominal pain Condition: Stable Disposition: HOME, SELF-CARE Instructions: Abdominal Pain ([facility]), Diarrhea, Nonspecific ([facility]), Ectopic Precaution ([facility]), Metronidazole ([facility]), ([facility]), Vaginosis, Bacterial ([facility]) Additional Instructions: Return immediately for any new or worsening symptoms Followup with your primary care provider, call tomorrow to make a followup appointment Follow-up with an BUSINESS ASSISTANT to establish care, you can start to take [id number] vitamins Obtain an outpatient stool collection and bring to lab for additional testing Return to lab in 2 days for repeat blood work Prescriptions: Metronidazole [Flagyl 500 mg Tablet] 500 mg PO BID #14 tablet Forms: Follow-Up Laboratory Testing, Follow-Up Outpatient Testing Referrals: TASIA ELKINS NP [Primary Care Provider] - Follow up as needed [facility] [NO LOCAL MD] - Follow up as needed [facility] [Provider Group] - Follow up as needed
[2020-06-11 13:16] LABS: BACTERIA (WET MOUNT) 4+ BACTERIA SEEN; EPITHELIALS (WET MOUNT) 3+ EPITHELIALS SEEN; RBCS (WET MOUNT) NO RBCS SEEN; T.VAGINALIS (WET MOUNT) NO TRICHOMONAS SEEN; WBCS (WET MOUNT) 1+ WBCS SEEN; YEAST (WET MOUNT) NO YEAST SEEN
--- NOTE | 2020-06-11 14:22 | RADIOLOGY REPORT (SQ) ---
EXAM DESCRIPTION: U/S OB TRANSVAGINAL W/O DOP IMAGES COMPLETED DATE/TIME: 06/11/2020 12:53 pm REASON FOR STUDY: pelvic pain. LMP 05/06/2020. COMPARISON: None. TECHNIQUE: Transvaginal static and realtime grayscale images acquired of the pelvis. Additional jan cted spectral and color Doppler images recorded. All images stored on PACs. CLINICAL AGE: 5 weeks 1 day bHC,166 LIMITATIONS: None. FINDINGS: UTERUS: No masses. No anomalies. GESTATIONAL SAC: There is a sac-like structure in the uterine fundus possibly representing a small ge stational sac. No yolk sac or pole. Mean gestational sac diameter is 0.5 cm corresponding to a gestational age of 5 weeks 2 days. YOLK SAC: Not present. POLE: None present. RIGHT ADNEXA: Not visualized. No adnexal mass or free fluid. LEFT ADNEXA: Not visualized. No adnexal free fluid. No adnexal masses. FREE FLUID: None. OTHER: No other significant finding. IMPRESSION: POSSIBLE EARLY INTRAUTERINE . BHCG LEVEL APPROPRIATE FOR ENDOMETRIAL FINDINGS. CONSIDER F/U BHCG AND/OR ULTRASOUND FOR VERIFICATION AND TO EXCLUDE ECTOPIC . Trimester of : First trimester - 0 to 13 weeks. TECHNICAL DOCUMENTATION: JOB ID: [id number] [employer]- All Rights Reserved Reading location - IP/workstation name: [email or web address]
[2020-06-11 14:42] LABS: CHLAM PCR NOT DETECTED (NOT DETECT)
[2020-06-11 15:38] VITALS: BP 153/88
== END 2020-06-11 15:32 | disposition home or self-care (01) ==
LOC: ER 07:18
DX: O23.591 Infection of other part of genital tract in pregnancy, first trimester (principal); B96.89 Other specified bacterial agents as the cause of diseases classified elsewhere; R19.7 Diarrhea, unspecified; R10.9 Unspecified abdominal pain; O99.334 Smoking (tobacco) complicating childbirth; Z3A.01 Less than 8 weeks gestation of pregnancy
CPT/HCPCS: 99284; 36415; 87210; 84702; 83690; 85025; 81025; 80053; 81001; 87491; 87591; 76817; J3490 ×2